=== PATIENT | female | born 1980 | race Asian ===

== ENCOUNTER → 2021-01-14 11:04 | Outpatient (BNVA) | payer OTHER, SELFPAY | PROVIDERS: PCP Internal Medicine; Visit Provider Anesthesiology ==

== ENCOUNTER → 2021-04-09 08:05 | Outpatient (BNVA) | payer OTHER, SELFPAY | PROVIDERS: PCP Internal Medicine; Visit Provider Anesthesiology ==

== ENCOUNTER 2021-05-05 06:08 | Outpatient (REF) | payer OTHER, SELFPAY ==
--- NOTE | ~2021-05-05 | FL_ITS ---
EXAMINATION: XR FLUOROSCOPY WITH IMAGES CLINICAL INFORMATION: Spondylosis without myelopathy or radiculopathy. COMPARISON: None. TECHNIQUE: Fluoroscopy performed by Zhanna Wharton NP Fluoroscopy time: 0.5 minutes DAP: 0.5 Gycm2 Images: 4 FINDINGS: Images demonstrate needle placement and contrast injection adjacent to the left C2-C5 vertebral bodies. FL/FL guidance in treatment room IMPRESSION: Fluoroscopy guidance for pain management procedure.
== END 2021-05-05 06:09 | disposition home or self-care (01) ==
LOC: HO.RADIR 06:08
PROVIDERS: Visit Provider Anesthesiology
DX: M47.812 Spondylosis without myelopathy or radiculopathy, cervical region (principal); G89.4 Chronic pain syndrome
CPT/HCPCS: 64490; 64491; 64492; Q9967

== ENCOUNTER → 2021-05-11 12:56 | Outpatient (BNVA) | payer OTHER, SELFPAY | PROVIDERS: PCP Internal Medicine; Visit Provider Anesthesiology | DX: M47.812 Spondylosis without myelopathy or radiculopathy, cervical region (principal); G89.4 Chronic pain syndrome | CPT/HCPCS: 99212 ==

== ENCOUNTER 2021-07-15 11:18 | Day surgery (SDC) | payer OTHER, SELFPAY ==
[2021-07-08 17:46] VITALS: BMI 26.9
--- NOTE | 2021-07-14 09:03 | HO.ANESPROP2 ---
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
--- NOTE | ~2021-07-15 | FL_ITS ---
EXAMINATION: XR FLUOROSCOPY WITH IMAGES CLINICAL INFORMATION: Spondylosis without myelopathy or radiculopathy. COMPARISON: Fluoroscopic spot views 05/05/2021 TECHNIQUE: Fluoroscopy performed by Dr. Maxwell. Fluoroscopy time: 0.3 minutes DAP: 0.168 mGycm2 Images: 3 FINDINGS: There are spinal needles overlying the left lateral masses cervical spine at C3, C4, and C5. There is contrast in the paraspinal soft tissues and probable early contrast in nerve sheaths. No visible vascular communication. FL/FL guidance in OR IMPRESSION: Fluoroscopy for pain management procedure.
[2021-07-15 11:38] VITALS: BMI 25.7
[2021-07-15 11:47] VITALS: BP 131/91; PULSE 90; RESP 16; TEMP 37.1; O2SAT 99
[2021-07-15 11:51] LABS: UPreg QC Valid YES; Urine Pregnancy NEGATIVE (NEGATIVE)
[2021-07-15] MEDS: Lactated Ringers 1,000 ML 100 ML IVCONT (12:01)
[2021-07-15 13:05] VITALS: BP 108/74; PULSE 84; RESP 16; TEMP 36.1; O2SAT 95
[2021-07-15 13:20] VITALS: BP 119/75; PULSE 90; RESP 16; O2SAT 99
[2021-07-15 13:35] VITALS: BP 123/84; PULSE 80; RESP 16; TEMP 36.1; O2SAT 99
--- NOTE | 2021-07-16 10:56 | P.BOP_ITS ---
Brief Operative Note Date of Service: 07/16/21 Pre-op diagnosis: Cervical spondylosis Post-op diagnosis: same Procedure: Cervical medial branches C3, C4, C5 therapeutic medial branch blocks Surgeon: Clark Maxwell MD Anesthesia: other (Mod sedation) Was an Design Studio Consultant used for this Procedure?: No Estimated blood loss (mL): 1 Pathology: none sent Condition: stable Disposition: PACU
--- NOTE | 2021-07-16 10:58 | W.PM.OPN ---
Operative Note Operative Note Date of Service: 07/16/21 Narrative: Therapeutic Cervical Medial Branch Injection, Left C3, C4, C5 medial branches After obtaining written consent, pre-procedure blood pressure and pulse were recorded and are in the nursing record for review. The patient was placed in a lateral position and sedated. The respective cervical area was prepped with chloraprep and draped in sterile fashion. The skin over the target medial branch nerves was anesthetized with 0.5% lidocaine. A 25 gauge 1.5 inch needle was inserted into the target medial branch nerve under fluoroscopic guidance. No paresthesias were elicited with needle placement and aspiration was negative for blood and CSF. Next, 0.2cc of omnipaque 180 was injected to verify positioning. Next 0.5 ml 0.5% ropivicaine mixed with 3.3mg Dexamethasone was injected (0.5 cc total per level). The identical procedure was performed at the remaining levels. The skin was cleansed and a sterile bandage was applied. Following the procedure the patient's vital signs were stable. The patient tolerated the procedure well and no complications were encountered. Following the procedure the patient was brought to PACU to recover from sedative agents. The patient was discharged home in good condition with post-procedural instructions. Time Out: Immediately prior to the procedure, the following was verbally confirmed that there is a signed consent form and that the correct patient, planned procedure, site and side are consistent with documentation and that necessary equipment and/or blood products are available prior to the start of the case. Complications: none EBL: <5 cc
== END 2021-07-15 13:51 | disposition home or self-care (01) ==
PROVIDERS: Nurse Practitioner; Visit Provider Internal Medicine
PROC: (CPT 64490; principal; 2021-07-15 12:30)
DX: M47.812 Spondylosis without myelopathy or radiculopathy, cervical region (principal); G89.4 Chronic pain syndrome; V89.2XXA Person injured in unspecified motor-vehicle accident, traffic, initial encounter
CPT/HCPCS: 64490; 64491; 81025; J1100; J2250; J3010; J3300

== ENCOUNTER 2021-10-21 11:27 | Day surgery (SDC) | payer OTHER, SELFPAY ==
[2021-10-15 09:29] VITALS: BMI 26.1
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
--- NOTE | ~2021-10-21 | FL_ITS ---
EXAMINATION: XR FLUOROSCOPY WITH IMAGES CLINICAL INFORMATION: Cervicalgia. Pain management procedure. COMPARISON: Fluoroscopic spot views cervical region 07/15/2021 TECHNIQUE: Fluoroscopy performed by Dr. Clark Maxwell. Fluoroscopy time: 0.4. Cumulative Dose: 1.65 mGy. DAP: 0.186 Gy-cm2. Images: 2. FINDINGS: There is spinal needle with tip directed towards the left C3-C4 facet joint. FL/FL guidance in OR IMPRESSION: Fluoroscopy for pain management procedure.
[2021-10-21 12:21] VITALS: BP 118/74; PULSE 82; RESP 18; TEMP 36; O2SAT 98
[2021-10-21 12:30] LABS: UPreg QC Valid YES; Urine Pregnancy NEGATIVE (NEGATIVE)
[2021-10-21] MEDS: LORazepam 1 MG TABLET PO (12:43)
[2021-10-21] MEDS: Acetaminophen 325 MG TABLET 975 MG PO (12:51)
--- NOTE | 2021-10-21 12:53 | PC.NURSE ---
pt surgery cancelled by dr tomas anesthesia secondary pt ate 1 teaspoomn of yogurt at 3pm. dr jack at bedside pt being done with oral meds no anesthesia. pt agreeable to new plan of care. ativan and tylenol given per order po pt resting comfortably with pain rate 4-5/10 no grimacing pt on her phone. will continue monitor
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
--- NOTE | 2021-10-21 13:17 | PC.NURSE ---
pt sleeping denies pain easily aroused
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
--- NOTE | 2021-10-21 13:19 | W.PM.OPN ---
Operative Note Operative Note Date of Service: 10/21/21 Narrative: Cervical Medial Branch Nerve Stimulation Lead Placement, SPR (Sprint) System, left C3 ? After the risks, benefits and alternatives were discussed with the patient and informed consent was obtained, patient was placed in the prone position and padded to foster comfort. The skin overlying the cervicothoracic spine was prepped and draped in sterile fashion. Fluoroscopy was used to identify the C3-4 articular pillar on the left side. After identifying and marking the intended target along the course of the medial branch nerve, the skin around the planned entry point and the subcutaneous tissues were injected with lidocaine 1%. An introducer needle and stimulating probe were assembled, inserted and advanced along the intended course of the medial branch nerve as it traverses the lamina, taking care to maintain the proper depth of insertion as the introducer was advanced under fluoroscopic guidance. The introducer needle was delivered to a location in proximity to the nerve. Multiple stimulation parameters were used to deliver stimulation to the target medial branch nerve in concert with stimulating at multiple positions around the nerve. Nerve target acquisition was confirmed noting generation of paresthesias in the paravertebral regions corresponding to the level being stimulated. Various electrical parameter combinations were tested, and the lead location was adjusted (physically relocated) until the patient indicated paresthesia/muscle tension overlapping the distribution of the patient?s typical region of pain. The stimulating probe was removed from the introducer and a percutaneous lead was guided through the needle and delivered to a location in similar proximity to the nerve. Final location was verified with electrical stimulation and documented with fluoroscopy. The introducer needle was removed, and the exposed end of the percutaneous lead was attached to an external stimulator unit. Various electrical parameter combinations were again tested until the patient indicated paresthesia or muscle tension overlapping the distribution of the patient?s typical region of pain. After confirming that lead impedance was in the normal range, the external unit was detached, the needle was removed, and the lead was anchored at the skin. The lead was threaded into the connector block and electrical continuity and desired patient response was confirmed. The connector block was attached to the external stimulator unit. The site was covered with a sterile occlusive dressing. The patient was observed for stability of vital signs and comfort.
[2021-10-21 14:25] VITALS: BP 112/74; PULSE 69; RESP 16; TEMP 36.3; O2SAT 99
[2021-10-21 14:40] VITALS: BP 110/76; PULSE 75; RESP 16; O2SAT 99
[2021-10-21 14:55] VITALS: BP 117/74; PULSE 74; RESP 16; O2SAT 99
[2021-10-21 15:05] VITALS: TEMP 36.6
== END 2021-10-21 15:20 ==
PROVIDERS: Nurse Practitioner; Visit Provider Internal Medicine
PROC: (CPT 64555; principal; 2021-10-21 13:10)
DX: M47.812 Spondylosis without myelopathy or radiculopathy, cervical region (principal); G89.4 Chronic pain syndrome; S13.4XXA Sprain of ligaments of cervical spine, initial encounter; V49.9XXA Car occupant (driver) (passenger) injured in unspecified traffic accident, initial encounter; Y93.9 Activity, unspecified; Y92.9 Unspecified place or not applicable; Y99.8 Other external cause status; Z79.1 Long term (current) use of non-steroidal anti-inflammatories (NSAID)
CPT/HCPCS: 64555; 81025; C1778

== ENCOUNTER → 2021-10-27 11:18 | Outpatient (BNVA) | payer OTHER, SELFPAY | PROVIDERS: PCP Internal Medicine; Visit Provider Nurse Practitioner Family | DX: M47.812 Spondylosis without myelopathy or radiculopathy, cervical region (principal); M54.2 Cervicalgia; G89.4 Chronic pain syndrome; S13.4XXA Sprain of ligaments of cervical spine, initial encounter | CPT/HCPCS: 99212 ==

== ENCOUNTER → 2021-11-02 08:53 | Outpatient (BNVA) | payer OTHER, SELFPAY | PROVIDERS: PCP Internal Medicine; Visit Provider Internal Medicine | DX: M47.812 Spondylosis without myelopathy or radiculopathy, cervical region (principal); M54.2 Cervicalgia | CPT/HCPCS: 99212 ==

== ENCOUNTER → 2021-12-28 11:39 | Outpatient (BNVA) | payer OTHER, SELFPAY | PROVIDERS: PCP Internal Medicine; Visit Provider Nurse Practitioner Family | DX: M47.812 Spondylosis without myelopathy or radiculopathy, cervical region (principal); M54.2 Cervicalgia; G89.4 Chronic pain syndrome | CPT/HCPCS: 99212 ==

== ENCOUNTER → 2022-02-01 10:48 | Outpatient (BNVA) | payer OTHER, SELFPAY | PROVIDERS: PCP Internal Medicine; Visit Provider Internal Medicine | DX: M47.812 Spondylosis without myelopathy or radiculopathy, cervical region (principal); M54.2 Cervicalgia | CPT/HCPCS: 99212 ==

== ENCOUNTER 2023-08-03 09:42 | Outpatient (AMB) | payer OTHER, SELFPAY ==
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
== END 2023-08-03 09:43 | disposition home or self-care (01) ==
LOC: HO.PMC 09:42
PROVIDERS: PCP Internal Medicine; Visit Provider Internal Medicine
DX: M47.812 Spondylosis without myelopathy or radiculopathy, cervical region (principal); M75.42 Impingement syndrome of left shoulder; R52 Pain, unspecified
CPT/HCPCS: 99214

== ENCOUNTER → 2023-08-03 09:42 | Outpatient (BNVA) | payer OTHER, SELFPAY | PROVIDERS: PCP Internal Medicine; Visit Provider Internal Medicine ==

== ENCOUNTER 2024-06-15 10:03 | Outpatient (AMB) | payer OTHER, SELFPAY ==
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
[2024-06-15 10:05] VITALS: BP 119/84; PULSE 104; RESP 16; O2SAT 97; BMI 26.9
--- OUTSIDE RECORDS SUMMARY | 2024-06-15 11:01 | XMS_ITS | Clinical Summary ---
Author Organization [address] Address [address] [place] [address] Phone Care Team Providers Care Copy Supervisor Name Role Phone Latoya Mackey MD Primary Care Provider [phone] Allergies No known active allergies Medications acetaminophen (TYLENOL) 325 mg tablet Take 650 mg by mouth every 6 hours as needed. Active Active Problems Problem Noted Date Diagnosed Date PNS (peripheral nervous system disease) 11/14/19 22 Overview (01/30/2024): Medial branch implant [facility] Spondylosis of cervical spine 11/13/2021 Lumbar radiculopathy 03/06/2020 Renal cyst, left 03/08/2019 Overview (01/30/2024): There is a 1.4 x 1.2 x 1.7 cm cyst in the upper pole of the right kidney. Dx'd on US - incidental finding Depression 10/16/2014 Encounters Date Type Department Care Team Description 05/28/2024 10:00 AM EDT Consult Vascular Surgery - [place] [address] [place] [address] Clara Cueto PA Pain in both lower extremities; Varicose veins of bilateral lower extremities with pain 03/22/2024 1:30 PM EST Office Visit [facility] [place] [address] [place], [place] [phone] Susy Dickens PA Pain in both lower extremities (Primary Dx); Varicose veins of bilateral lower extremities with pain 03/22/2024 Telephone Adult [facility] [address] [place], [place] [phone] Latoya Mackey MD Leg Pain from Last 3 Months Immunizations Name Administration Dates Next Due Influenza Quadravalent, MDCK , 0.5ml, preservative free (Flucelvax) 6mo and older 02/12/2020 Pfizer SARS-CoV-2 COVID-19, mRNA, LNP-S, preservative free 08/30/2020 Td Tetanus diptheria (Tdvax) 7yo and older 10/11 Surgical History Surgery Date Site/Laterality Comments TUBAL LIGATION 01/2018 PROCEDURE: HISTORICAL TUBAL LIGATION OTHER SURGICAL HISTORY 10/02/2020 Right PROCEDURE: IA ARTHROSCOPY ELBOW SURGICAL DEBRIDEMENT LIMITED; COMMENT: By Dr. Nunu Cleaning - d/t lateral epicondylitis BREAST BIOPSY 10/2022 Left PROCEDURE: BX BREAST; PERC NEEDLE CORE W/IMAG GUID; COMMENT: fibroadenoma Medical History Medical History Date Comments Hypotension DX:Hypotension Strep pharyngitis 01/31/2016 DX:Strep phary ngitis PNS (peripheral nervous syst em disease) 11/13/2021 DX:PNS (peripheral nervous s ystem disease); COMMENT: Medial branch implant [facility] Spondylosis of cervical spine 11/13/2021 DX :Spondylosis of cervical spine Family History Medical History Relation Name Comments Diabetes Brother 1 No Known Problems Daughter 1 No Known Problems Daughter 2 No Known Problems Daughter 3 Coronary artery disease Father diab etes, htn, high chol Diabetes Mother No Known Problems Son Breast cancer Neg Hx Colon cancer Neg Hx Ovarian cancer Neg Hx Relation Name Status Comments Brother 1 Alive Brother 2 Alive Daughter 1 Alive Daughter 2 Alive Daughter 3 Alive Father Alive Mother Alive Sister 1 Alive Sister 2 Alive Sister 3 Alive Sister 4 Alive Son Alive Social History Tobacco Use Types Packs/Day Years Used Date Smoking Tobacco: Never Smokeless Tobacco: Never Tobacco Cessation:Counseling Given: Not Answered Alcohol Use Standard Drinks/Week Comments No 0 (1 standard drink = 0.6 oz pur e alcohol) Comments Unknown Sex and Gender Information Value Date Recorded Sex Assigned at Not on file Legal Sex Female 10:16 AM EST Gender Identity Not on file Sexual Orientation Not on file Obstetrics History Last Filed Vital Signs Vital Sign Reading Time Taken Comments Blood Pressure 108/72 05/28/2024 9:50 AM EDT Pulse 101 05/28/2024 9:50 AM EDT Temperature 36.7 ??C (98.1 ??F) 03/22/2024 1:47 PM ES T Respiratory Rate 14 03/22/2024 1:47 PM EST Oxygen Saturation - - Inhaled Oxygen Concentration - - Weight 72.9 kg (160 lb 12.8 oz) 05/28/2024 9:50 AM EDT Height 162.6 cm (5' 4 ) 05/28/2024 9:50 AM EDT Body Mass Index 27.6 05/28/2024 9:50 AM EDT Plan of Treatment Upcoming Encounters Date Type Department Care Team (Late st Contact Info) Description 07/03/2024 10:00 AM EDT Ancillary Procedure [facility] [address] [facility] [address] [place] [address] 10/08/2024 8:30 AM EDT Office Visit Vascular Surgery - [place] [address] [facility] [address] [place] [address] Carroll Woodard MD [address] [facility] [address] [place] [address] 10/11/2024 7:50 AM EDT Appointment Radiology Department - [address] [phone] 10/23/2024 8:30 AM EDT Office Visit [facility] [address] [phone] Susy Dickens PA [address] [place] [phone] Health Maintenance Due Date Last Done Comments Hepatitis B Vaccines (1 of 3 - 19+ 3-dose series) 2001 Depression Screening 01/12/2022 Hepatitis C Screening 01/12/2022 Social Influencers of Health Screening 01/12/2022 COVID-19 Vaccine ( season) 2023 10/26/2020, 08/30/2020 Influenza Vaccine (Season Ended) 2024 02/12/2020, 12/13/2017, 11/14/2013, Additional history exists Breast Cancer Screening 10/10/2025 10/11/19 24, 10/11/2023, 10/26/2022, Additional history exists Cervical Cancer Screening: HPV 09/02/2027 09/01/2022 DTaP,Tdap,and Td Vaccines (3 - Td or Tdap) 12/14/2027 12/13/2017, 10/11/2016 HIV Screening Completed 06/20/2017 Meningococcal ACWY Vaccine Aged Out 07/23/2022 N o longer eligible based on patient's age to complete this topic HIB Vaccines Aged Out No longer eligi ble based on patient's age to complete this topic HPV Vaccines Aged Out No longer eligi ble based on patient's age to complete this topic Hepatitis A Vaccines Aged Out No long er eligible based on patient's age to complete this topic IPV Vaccines Aged Out No longer eligi ble based on patient's age to complete this topic MMR Vaccines Aged Out No longer eligi ble based on patient's age to complete this topic Meningococcal B Vaccine Aged Out No l onger eligible based on patient's age to complete this topic Pneumococcal Vaccine: Pediatrics (0 to 5 Years) and At-Risk Patients (6 to 64 Years) Aged Out No longer eligible based on patient's age to complete this topic RSV Immunization Patients Under 20 months Aged Out No longer eligible based on patient's age to complete this topic Varicella Vaccines Aged Out No longer eligible based on patient's age to complete this topic Procedures Procedure Name Priority Date/Time Associated Diagnosis Comments VITAMIN B12 Routine 03/22/2024 2:31 PM EST Pain in both lower extremities SCREENING MAMMOGRAPHY BI 2-VIEW BREAST INC CAD Routine 10/11/2023 8:30 AM EDT Encounter for screening mammogram for malignant neoplasm of breast Encounter for gynecological examination (general) (routine) without abnormal findings HM HPV Routine 09/01/2022 HIV SCREENING Routine 06/20/2017 from Last 3 Months or Most Recently Relevant to Health Maintenance Results * Vitamin B12 (03/22/2024 2:31 PM EST) Vitamin B-12 303 250 - 900 pcg/mL LAB CHEMISTRY METHOD 03/22/2024 4:57 PM EST [facility] Blood Venous blood specimen / Unknown Venipuncture / Unknown 03/22/2024 2:31 PM EST 03/22/2024 2:31 PM EST [facility] BLOOD ORDERABLES Final Res ult [facility] [address] [place] [address], * SCREENING MAMMOGRAPHY BI 2-VIEW BREAST INC CAD (10/11/2023 8:30 AM EDT) Anatomical Region Laterality Modality Radiographic Aliyah ging 10/07/2022 8:07 AM EDT Narrative 10/12/2023 11:33 AM EDT This is a summary report. The complete report is available in the patient's medical record. If you cannot access the medical record, please contact the sending organization for a detailed fax or copy. BILATERAL 3D DIGITAL SCREENING MAMMOGRAM History: Routine screening. ??No current breast complaints. Comparison: Mammogram from 10/07/2022 Technique: Bilateral full-field digital 3D mammography was performed using standard CC and MLO projections CAD was used to evaluate this mammogram. Findings: Density: ?? The breasts are heterogeneously dense which may obscure small masses-C RIGHT: No suspicious masses, groups of microcalcification or areas of architectural distortion identified. Stable typically benign parenchymal asymmetries LEFT: No suspicious masses, groups of microcalcifications or areas of architectural distortion identified. Stable typically benign parenchymal asymmetries. ??Upper outer breast biopsy marker. IMPRESSION: : 1. ??No mammographic evidence of malignancy. BI-RADS Category 2 benign findings Recommendation: Routine annual screening mammography is recommended Procedure Note Vincent Guerrier MD - 11/30/2023 This is a summary report. The complete report is available in thepatient's medical record. If you cannot access the medical record, pleasecontact the sending organization for a detailed fax or copy. BILATERAL 3D DIGITAL SCREENING MAMMOGRAM History: Routine screening. No current breast complaints. Comparison: Mammogram from 10/07/2022 Technique: Bilateral full-field digital 3D mammography was performed usingstandard CC and MLO projections CAD was used to evaluate this mammogram. Findings: Density: The breasts are heterogeneously dense which may obscure smallmasses-C RIGHT: No suspicious masses, groups of microcalcification or areas ofarchitectural distortion identified. Stable typically benign parenchymalasymmetries LEFT: No suspicious masses, groups of microcalcifications or areas ofarchitectural distortion identified. Stable typically benign parenchymalasymmetries. Upper outer breast biopsy marker. IMPRESSION: : 1. No mammographic evidence of malignancy. BI-RADS Category 2 benign findings Recommendation: Routine annual screening mammography is recommended Hannah Dunn CNM IMG XR PROCEDURES Final Result * Cervical Cancer Screening: HPV (09/01/2022) Cervical Cancer Screening: HPV negative, abstracted Historical Provider HEALTH MAINTENANCE Final Result * HIV Screening (06/20/2017) HIV Screening abstracted Historical Provider HEALTH MAINTENANCE Final Result from Last 3 Months or Most Recently Relevant to Health Maintenance Insurance [facility] [employer] Care Teams Copy Supervisor Relationship Specialty Start Date End Date Latoya Mackey MD [address] [place] [address] [phone] PCP - General Internal Medicine 03/22/24
== END 2024-06-15 10:30 | disposition home or self-care (01) ==
LOC: HO.PMC 10:04
PROVIDERS: PCP Internal Medicine; Visit Provider Internal Medicine
DX: M75.42 Impingement syndrome of left shoulder (principal); M54.12 Radiculopathy, cervical region
CPT/HCPCS: 99213

== ENCOUNTER → 2024-06-15 10:03 | Outpatient (BNVA) | payer OTHER, SELFPAY | PROVIDERS: PCP Internal Medicine; Visit Provider Internal Medicine | DX: M75.42 Impingement syndrome of left shoulder (principal); M54.12 Radiculopathy, cervical region | CPT/HCPCS: 99212 ==